=== PATIENT | male | born 1985 | race Caucasian/White ===

== ENCOUNTER 2022-03-02 08:10 | Emergency (ER) | payer OTHER, SELFPAY ==
[2022-03-02 08:18] VITALS: BP 128/87; PULSE 100; RESP 16; TEMP 36.1; O2SAT 98
--- NOTE | 2022-03-02 08:26 | ED.MALEGU ---
HPI - Male Genitourinary General Chief complaint: Skin/Abscess/Foreign Body Stated complaint: Penis infection Time Seen by Provider: 03/02/22 08:26 Source: patient, RN notes reviewed and old records reviewed Mode of arrival: ambulatory Limitations: no limitations History of Present Illness HPI Narrative: 36 year old male presents to express care with complaints of red tender penis and with some excoriation around circumcision skin for past 2 days Patient states he just got over the flu he has been sweating a lot due to high fevers. Patient has not applied any OTC medications increased redness noted after shower today, no present fever. Patient denies any burning, frequency or urgency of urination or any concern for STD's. MD Complaint: other (rash and excoriation to end of penis.) Onset (ago): day(s) (day 2 of symptoms) Severity scale (1-10): 2 Associated symptoms: Reports other (red and painful) Related Data Allergies Allergy/AdvReac Type Severity Reaction Status Date / Time No Known Allergies Allergy Unverified 03/02/22 08:26 Review of Systems Review of Systems: CONSTITUTIONAL: Denies malaise, chills, sweats, or fever. EYES: Denies visual changes, redness, or discharge. ENT: Denies any rhinorrhea, congestion, sinus pain, otalgia or sore throat. CARDIOVASCULAR: Denies chest pain, palpitations, or edema. RESPIRATORY: Reports cough.? Denies dyspnea. GASTROINTESTINAL: Denies abdominal pain, nausea, vomiting, diarrhea SKIN: Red excoriated tissue to end of penis and around circumcised tissue area, is painful MUSCULOSKELETAL: Denies myalgia. NEUROLOGIC: Denies headache. All systems reviewed & are unremarkable except as noted in HPI and below PMFSH Past Medical History Medical History (Updated 03/05/22 @ 01:02 by Halima Villalpando NP) Shingles Surgical History Surgical History History of tonsillectomy Social History Social History Smoking status: Current some day smoker Tobacco type: cigars Alcohol intake: unknown Substance use type: does not use Gender identity (if verbalized by the patient): Male Comments At time of signature, agree with nursing past medical, surgical, social and family history. There is no relevant family history pertinent to the presenting complaint Exam Narrative: GENERAL: Well-appearing, well-nourished, and in no acute distress. HEAD: Normocephalic EYES: PERRLA, conjunctivae clear ENT: Nares clear, turbinates edematous and erythematous, clear discharge. Mucous membranes moist. TM pearly mijares with dull light reflex bilaterally; no tragal tenderness. Oropharynx erythematous without lesions. Tonsils not present and without exudate, no drooling, no hoarseness, no trismus, uvula midline. NECK: Supple. No lymphadenopathy CHEST: Clear to auscultation, breath sounds equal. No wheezing, rhonchi, rales, or stridor. No respiratory distress, speaks in full sentences. HEART: Regular rate and rhythm. No murmur heard. SKIN: Warm, dry, red rash and some excoriation around head of penis and circumcision skin, no bleeding noted reports pain to area. NEURO: Alert and oriented x3. PSYCH: Normal mood and affect Course Course Emergency Course: Patient is aware of diagnosis, understands and agrees to treatment plan.? Anticipatory guidance given.? Patient agrees to follow-up as directed and is aware of reasons to seek care at the emergency department. Portions of this record may have been created with voice recognition software Level of Care: Express Care Visit Vital Signs Vital signs: Vital Signs Temperature 36.1 C L 03/02/22 08:18 Pulse Rate 100 03/02/22 08:18 Respiratory Rate 16 03/02/22 08:18 Blood Pressure 128/87 03/02/22 08:18 Pulse Oximetry 98 03/02/22 08:18 Oxygen Delivery Room Air 03/02/22 08:18 Temperature 36.1 C L 03/02/22
== END 2022-03-02 08:50 | disposition home or self-care (01) ==
PROVIDERS: Emergency Provider Registered Nurse
DX: B37.2 Candidiasis of skin and nail (principal); F17.200 Nicotine dependence, unspecified, uncomplicated
CPT/HCPCS: 99203; G0463

== ENCOUNTER 2022-10-19 09:15 | Emergency (ER) | payer BC, SELFPAY ==
--- NOTE | ~2022-10-19 | XR_ITS ---
XR chest 2V DATE: 10/19/2022 09:58 INDICATION: Cough, rhonchi. Low oxygen level. History of asthma. TECHNIQUE: 2 views COMPARISON: None FINDINGS: Normal heart size. No hilar or mediastinal enlargement. No pulmonary infiltrate or consolid ation, pleural effusion or pulmonary vascular congestion or pneumothorax. Mild anterior wedging and loss of height of T11. Moderate loss of height and anterior wedging of L1. IMPRESSION: No active cardiopulmonary disease Reviewed, dictated and finalized at location B.
[2022-10-19 09:21] VITALS: BP 127/102; PULSE 96; RESP 16; TEMP 36.8; O2SAT 95
--- NOTE | 2022-10-19 10:02 | ED.URI ---
HPI - URI/Sore Throat General Chief Complaint: Upper Respiratory Infection Stated Complaint: cough Source: patient and RN notes reviewed Mode of arrival: ambulatory History of Present Illness HPI Narrative: 37-year-old male presents to the [facility] today complaining of a chronic cough. Patient stated for the last 3-4 weeks patient has had a cough that is productive. Patient states he has been using [id number] DayQuil NyQuil to help with symptoms with no improvement. Patient states he has a history of asthma and states that he has ran out his medications for his asthma because he no longer sees a primary care doctor. Patient is concerned that his asthma is acting up again. Patient states he has not had asthma problems in the last 3 years because he has lost weight. Patient states at times it does feel like it is harder to breathe and does state that he feels some heaviness on his chest. Patient states he is coughing up yellow sputum. Patient denies any significant past medical history but does admit to being prediabetic. Patient is not taking any meds daily. Patient also noticed after work he develops a rash that appears to be hives and dissipates after he takes shower. Patient denies change in his laundry detergent recently new or changing any of his bath products. Patient stated that a ceiling collapsed on all of his work uniforms and thinks may be a dust irritating his skin. 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 Patient denies any current rash. Related Data Home Medications Medication Instructions Recorded Confirmed ibuprofen 800 mg tablet 800 mg PO Q6H 10/19/22 10/19/22 Allergies Allergy/AdvReac Type Severity Reaction Status Date / Time No Known Allergies Allergy Verified 10/19/22 09:34 Review of Systems Review of Systems: CONSTITUTIONAL: Denies fever, chills, or sweats. EYES: Denies visual changes, redness, or discharge. ENT: Denies otalgia. Positive for sore throat. CARDIOVASCULAR: Endorses chest pressure, no palpitations, or edema. RESPIRATORY: Positive for cough and shortness of breath. GASTROINTESTINAL: Denies abdominal pain, nausea, vomiting, or diarrhea. GENITOURINARY: Denies dysuria or hematuria. SKIN: Denies rash or itching. MUSCULOSKELETAL: Denies back pain, joint pain, or myalgia. NEUROLOGIC: Denies headache, numbness, or weakness. Pertinent positives per HPI. [facility] Past Medical History Medical History (Updated 10/19/22 @ 10:28 by Sammie Liang APRN) Shingles Surgical History Surgical History History of tonsillectomy Social History Social History Smoking status: Current some day smoker Tobacco type: cigars Alcohol intake: unknown Substance use type: does not use Living arrangements: with family Gender identity (if verbalized by the patient): Male Comments At the time of my signature, I reviewed and agree with the nursing past medical, surgical, social, and family history. There is no relevant family history pertinent to the patient complaint. Exam Narrative: GENERAL: This is a well-nourished, well-developed patient, in no apparent distress. HEAD: normocephalic, atraumatic. EYES: Sclera clear/white. Vision is grossly intact. EARS: External ears normal, auditory canals clear and without drainage, TMs normal without perforation. Hearing grossly intact. NOSE: External nose normal with no obvious nasal discharge, nares without redness, no rhinorrhea. THROAT: Mucous membranes moist, posterior pharynx clear with mild erythema. NECK: Neck supple, non-tender without lymphadenopathy, masses or thyromegaly. CARDIOVASCULAR: Regular rate and rhythm without murmurs, gallops, or rubs. RESPIRATORY: There is rhonchi present to all posterior lobes to auscultatio
== END 2022-10-19 10:31 | disposition home or self-care (01) ==
PROVIDERS: Emergency Provider Nurse Practitioner Family
DX: J40 Bronchitis, not specified as acute or chronic (principal); F17.290 Nicotine dependence, other tobacco product, uncomplicated
CPT/HCPCS: 71046; 99213; G0463